=== PATIENT | male | born 1970 ===

== ENCOUNTER 2024-01-16 20:49 | Emergency (ER) | payer SELFPAY ==
[2024-01-16 20:52] VITALS: BP 121/82
[2024-01-16 21:58] LABS: % Basophils 1.3 % (0-2); % Eosinophils 5.9 % (0-6); % Lymphocytes 39.8 % (20.5-51.1); % Monocytes 10.4 % (1.7-9.3); % Neutrophils 42.6 % (42.2-75.2); Absolute Basophils 0.1 10^3/uL (0-0.2); Absolute Eosinophils 0.3 10^3/uL (0-0.7); Absolute Lymphocytes 1.9 10^3/uL (1.2-3.4); Absolute Monocytes 0.5 10^3/uL (0.1-0.6); Hematocrit 41.9 % (39.0-52.0); Hemoglobin 15.2 g/dL (13.0-18.0); Mean Corp Hgb Conc. 36.3 g/dL (33.0-37.0); Mean Corpuscular Hgb 32.1 pg (27.0-31.0); Mean Corpuscular Volume 88.6 fL (80.0-94.0); Mean Platelet Volume 9.1 fL (7.4-10.4); Nucleated Red Blood Cells % 0 % (-); Platelet Count 286 10^3/uL (130-400); Red Blood Cell Count 4.73 10^6/uL (4.70-6.10); Red Cell Dist. Width 10.9 % (11.5-14.5); White Blood Cell Count 4.7 10^3/uL (4.8-10.8)
[2024-01-16 22:15] LABS: Blood Urea Nitrogen 23 mg/dl (9-20); Calcium 9.4 mg/dl (8.4-10.2); Carbon Dioxide 30 mmol/L (22-30); Chloride 105 mmol/L (98-107); Glucose 92 mg/dl (70-99); Potassium 4.4 mmol/L (3.5-5.1); Sodium 139 mmol/L (135-145); eGFR > 60.00
[2024-01-16 22:16] LABS: Alcohol None Detected
[2024-01-16 22:35] LABS: Amphetamines Positive (Negative); Barbiturates Negative (Negative); Benzodiazepines Positive (Negative); Buprenorphine Negative (Negative); Cocaine Negative (Negative); Marijuana Positive (Negative); Methadone Negative (Negative); Methamphetamines Positive (Negative); Opiates Negative (Negative); Phencyclidine Negative (Negative); Tricyclic Antidepressants Positive (Negative)
--- NOTE | 2024-01-16 22:59 | ED.GENMED ---
History of Present Illness
General
Chief Complaint: Crisis Evaluation
Source: patient and family
Exam Limitations: none
Time Seen by Provider: 01/16/24 22:36
Nursing documentation reviewed up to this point in time: agreed with
Travel History
Have you had any contact with someone who has COVID-19?: No
Do you have any symptoms of coronavirus? Fever > 100 degrees, chills, cough, shortness of breath, sore throat, loss of taste or smell, muscle aches, or headache?: No
History of Present Illness
History of Present Illness:
53-year-old male history of mental illness has been hospitalized as a teenager homeless, living with friends and family family had not heard from her for a few days, called the police found that he been picked up on a warrant bailed him out from the
local [facility], patient admits to smoking methamphetamine admits to depression family is trying to get him some help patient denies hallucinations, no plan to harm himself now no alcohol
Past History
Past History
ED Past Medical History: Psychiatric
Social History
Tobacco: Non-smoker
Alcohol: None
Drug: Other (Methamphetamine)
Personal: Single
Living: homeless
Employment: Not employed
Review of Systems
Review of Systems
Constitutional: Reports sleep disturbance
Psychiatric: Reports depression; Denies anxiety, suicidal or hallucinations
Phy Exam
Physical Exam
Physical Exam:
Physical Exam
General: 53 male flat affect cooperative
Neck: No jaundice
Heart: Regular
Lungs: no acute respiratory distress.
Neuro: alert and oriented. no focal neurological deficits
Skin: no rash
Psychiatric: Depressed cooperative not suicidal not appear to be hallucinating
Extremities: no edema.
Course
Orders/Labs/Results
Orders:
Orders
01/16/24 21:21
Crisis Consult Urgent
Reason for Consult: depression, hx of SI and attempt
01/16/24 21:50
Alcohol Urgent
Basic Metabolic Panel Urgent
Complete Blood Count/With Diff Urgent
01/16/24 21:52
Case Management Consult ONCE
Case Management Consult: Suicide Risk
01/16/24 22:15
Fentanyl, Urine Urgent
Urine Drug Abuse Screen Urgent
Date Specimen was Collected: 01/16/24
Time Specimen was Collected: 21:39
Abnormal Lab Results
01/16/24 01/16/24
21:50 22:15
WBC 4.7 L 10^3/uL
(4.8-10.8)
MCH 32.1 H pg
(27.0-31.0)
RDW 10.9 L %
(11.5-14.5)
Monocytes % 10.4 H %
(1.7-9.3)
BUN 23 H mg/dl
(9-20)
Ur Tricyclics Screen Positive H
(Negative)
Ur Amphetamines Screen Positive H
(Negative)
U Methamphetamines Scrn Positive H
(Negative)
U Benzodiazepines Scrn Positive H
(Negative)
U Marijuana (THC) Screen Positive H
(Negative)
01/16/24 21:50
01/16/24 21:50
Vital Signs
Initial and Last Documented VS:
Initial Vital Signs
Temp Pulse Resp BP Pulse Ox
98.5 F 94 18 121/82 99
01/16/24 20:52 01/16/24 20:52 01/16/24 20:52 01/16/24 20:52 01/16/24 20:52
Last Documented Vital Signs
Temp Pulse Resp BP Pulse Ox
98.5 F 94 18 121/82 99
01/16/24 20:52 01/16/24 20:52 01/16/24 20:52 01/16/24 20:52 01/16/24 20:52
MDM/Problems Addressed
Differential Diagnosis Includes:
Depression mental illness substance abuse
MDM/Problems Addressed:
Depression substance abuse
Chronic conditions affecting care:
Mental illness substance abuse
Acute Exacerbation and/or Progression of Chronic Illness:
Mental illness substance abuse
*Pulse Oximetry
Patient hypoxic: no
*Critical Care Note
Total Time (30-74mins, 75-104mins- exclusive of procedures): Not Applicable
Update Note
Update Note:
11 labs are noted UDS noted BAL noted reviewed with family they like to get him some mental health help,
Reviewed with crisis, will see him also consideration for drug rehab
ED Attending Note
-
Portions of this chart may have been created with voice recognition software.� Occasional wrong word or��sound alike� substitutions may have occurred due to the inherent limitations of voice recognition software.
Discharge Plan
Departure
Referrals:
UNKNOWN - PT NOT,INTERVIEWE [Family Provider] -
Interventions
Interventions:
*Risk Screen - Suicide Last Done: 01/16/24 21:50
*General Assessment Last Done: 01/16/24 20:52
*Neglect/Abuse Screening Last Done: 01/16/24 21:53
ED- Fall Risk Assessment Last Done: 01/16/24 21:53
*ED COVID-19 Vaccine History Last Done: 01/16/24 21:01
ED-Psychological Assessment Last Done: 01/16/24 22:04
[2024-01-16 23:32] LABS: Fentanyl, Urine Negative (Negative)
[2024-01-17 12:00] VITALS: BP 111/76
== END 2024-01-17 16:10 ==
LOC: EMR 20:49
PROVIDERS: EMERGENCY PHYSICIAN Emergency Medicine
DX: F32.A Depression, unspecified (principal); F12.90 Cannabis use, unspecified, uncomplicated; F15.90 Other stimulant use, unspecified, uncomplicated; F13.90 Sedative, hypnotic, or anxiolytic use, unspecified, uncomplicated
CPT/HCPCS: 99285; 80048; 80306; 80307; 82077; 85025

== ENCOUNTER 2024-10-30 11:42 | Emergency (ER) | payer SELFPAY ==
[2024-10-30 11:50] VITALS: BP 123/75
[2024-10-30 12:38] LABS: % Basophils 1.5 % (0-2); % Eosinophils 5.9 % (0-6); % Immature Granulocytes 0.2 % (0-0.5); % Lymphocytes 33.7 % (20.5-51.1); % Monocytes 8.4 % (1.7-9.3); % Neutrophils 50.3 % (42.2-75.2); Absolute Basophils 0.1 10^3/uL (0-0.2); Absolute Eosinophils 0.3 10^3/uL (0-0.7); Absolute Monocytes 0.5 10^3/uL (0.1-0.6); Absolute Neutrophils 2.9 10^3/uL (1.4-6.5); Hematocrit 41.9 % (39.0-52.0); Hemoglobin 14.3 g/dL (13.0-18.0); Mean Corp Hgb Conc. 34.1 g/dL (33.0-37.0); Mean Corpuscular Hgb 31.7 pg (27.0-31.0); Mean Corpuscular Volume 92.9 fL (80.0-94.0); Mean Platelet Volume 9.7 fL (7.4-10.4); Nucleated Red Blood Cells % 0 % (-); Platelet Count 265 10^3/uL (130-400); Red Blood Cell Count 4.51 10^6/uL (4.70-6.10); Red Cell Dist. Width 11.4 % (11.5-14.5); White Blood Cell Count 5.8 10^3/uL (4.8-10.8)
[2024-10-30 12:55] LABS: ALT (SGPT) 43 U/L (0-50); AST (SGOT) 55 U/L (17-59); Albumin 4.6 g/dl (3.5-5.0); Alkaline Phosphatase 38 U/L (38-126); Blood Urea Nitrogen 15 mg/dl (9-20); Calcium 9.7 mg/dl (8.4-10.2); Carbon Dioxide 31 mmol/L (22-30); Chloride 101 mmol/L (98-107); Glucose 87 mg/dl (70-99); Potassium 4.2 mmol/L (3.5-5.1); Sodium 137 mmol/L (135-145); Total Bilirubin 1.1 mg/dl (0.2-1.3); Total Protein 7.3 g/dl (6.3-8.2); eGFR > 60.00
--- NOTE | 2024-10-30 13:52 | ED.GENMED ---
History of Present Illness
General
Chief Complaint: Crisis Evaluation
Time Seen by Provider: 10/30/24 12:03
History of Present Illness
History of Present Illness:
54-year-old male presents to the emergency department for evaluation of increasing depression and passive suicidality. He states he has fleeting ideas of a plan but denies any concrete plan. No access to weapons at home. Willing to sign himself
in for inpatient mental health treatment. Denies any other complaints
Past History
Past History
ED Past Medical History: Psychiatric
Social History
Tobacco: Non-smoker
Alcohol: None
Drug: Other (Methamphetamine)
Personal: Single
Living: homeless
Employment: Not employed
Review of Systems
Review of Systems
Allergies reviewed?: Yes
All Other Systems: ROS reviewed and negative except as documented in HPI and ROS
Phy Exam
Physical Exam
Physical Exam:
GEN: Well appearing, NAD, WDWN
HEENT: Oral mucosa moist, no scleral icterus
Cardiac: Regular rate
Lung: No respiratory distress, no tachypnea
MSK: No gross deformity or injuries
Skin: Good color, no pallor or jaundice, no rashes
Neuro: AO x3, moves all extremities freely
Psych: Calm, cooperative, flat affect
Course
Orders/Labs/Results
Orders:
Orders
10/30/24 11:44
1:1 Observation - Suicide/ Violent Behavior As Directed
Crisis Consult Urgent
Reason for Consult: +SI
10/30/24 12:31
Complete Blood Count/With Diff Urgent
Comprehensive Metabolic Panel Urgent
10/30/24 14:10
Urinalysis Reflex To Culture Urgent
Date Specimen was Collected: 10/30/24
Time Specimen was Collected: 14:09
Urine Drug Abuse Screen Urgent
Date Specimen was Collected: 10/30/24
Time Specimen was Collected: 14:09
Urine Microscopic Reflex Cult Urgent
Abnormal Lab Results
10/30/24 10/30/24
12:31 14:10
RBC 4.51 L 10^6/uL
(4.70-6.10)
MCH 31.7 H pg
(27.0-31.0)
RDW 11.4 L %
(11.5-14.5)
Carbon Dioxide 31 H mmol/L
(22-30)
Leukocyte Esterase Rfl Trace A
(Negative)
Urine Bacteria (Reflex) Few A
(Negative)
10/30/24 12:31
10/30/24 12:31
Vital Signs
Initial and Last Documented VS:
Initial Vital Signs
Temp Pulse Resp BP Pulse Ox
98.0 F 66 18 123/75 99
10/30/24 11:50 10/30/24 11:50 10/30/24 11:50 10/30/24 11:50 10/30/24 11:50
Last Documented Vital Signs
Temp Pulse Resp BP Pulse Ox
98.0 F 66 18 123/75 99
10/30/24 11:50 10/30/24 11:50 10/30/24 11:50 10/30/24 11:50 10/30/24 11:50
MDM/Problems Addressed
MDM/Problems Addressed:
Patient arrives as a 201 for placement due to depression and suicidal ideation. He is medically cleared for inpatient psychiatric admission. Will await bed placement
*Critical Care Note
Total Time (30-74mins, 75-104mins- exclusive of procedures): Not Applicable
ED Attending Note
-
Portions of this chart may have been created with voice recognition software.� Occasional wrong word or��sound alike� substitutions may have occurred due to the inherent limitations of voice recognition software.
Discharge Plan
Departure
Patient Disposition: Psych Facility
Date of Disposition: 10/30/24
Time of Disposition: 13:52
Discharge Problem:
Depression with suicidal ideation
Interventions
Interventions:
*Risk Screen - Suicide Last Done: 10/30/24 11:42
*General Assessment Last Done: 10/30/24 11:49
*Neglect/Abuse Screening Last Done: 10/30/24 11:49
*ED COVID-19 Vaccine History Last Done: 10/30/24 11:49
Discharge Date and Time
Print Language: WELSH
[2024-10-30 14:35] LABS: Urine Albumin Negative (Neg - Trace); Urine Bilirubin Negative (Negative); Urine Character Clear (Clear); Urine Color Yellow; Urine Glucose Negative (Negative); Urine Ketone Negative (Negative); Urine Leukocyte Trace (Negative); Urine Nitrite Negative (Negative); Urine Occult Blood Negative (Negative); Urine Urobilinogen Negative (Neg - 1+)
[2024-10-30 14:47] LABS: Urine Bacteria Few (Negative); Urine Red Blood Cell 0-2 /HPF (0-2); Urine Urothelial Cell 0-2 /LPF (FEW)
[2024-10-30 15:13] LABS: Amphetamines Negative (Negative); Barbiturates Negative (Negative); Benzodiazepines Negative (Negative); Buprenorphine Negative (Negative); Cocaine Negative (Negative); Marijuana Negative (Negative); Methadone Negative (Negative); Methamphetamines Negative (Negative); Opiates Negative (Negative); Phencyclidine Negative (Negative); Tricyclic Antidepressants Negative (Negative)
== END 2024-10-30 19:38 ==
LOC: EMR 11:42
PROVIDERS: Physician Assistant; EMERGENCY PHYSICIAN Student in an Organized Health Care Education/Training Program
DX: F32.A Depression, unspecified (principal); R45.851 Suicidal ideations; Z59.00 Homelessness unspecified
CPT/HCPCS: 99285; 80053; 80306; 81003; 81015; 85025